=== PATIENT | male | born 1940 | race Caucasian/White ===

== ENCOUNTER 2017-02-25 05:14 | Observation (INO) | payer OTHER ==
[2017-02-25] MEDS ORDERED: NS 1,000 ML IV ONE (05:23)
--- NOTE | 2017-02-25 05:24 | CPEKG ---
Heart Rate: 55 RR Interval: 1091 P-R Interval: 180 QRSD Interval: 94 QT Interval: 456 QTC Interval: 437 P [place]: 64 QRS [place]: 68 T Wave [place]: 44 EKG Severity - NORMAL ECG - EKG Impression: SINUS RHYTHM Electronically Signed By: Alaina Lopez 25-Feb-2017 22:50:05
--- NOTE | 2017-02-25 05:29 | EDPHY ---
H & P HPI/ROS: HPI CHIEF COMPLAINT: Syncope, head injury HISTORY OF PRESENT ILLNESS: This patient very pleasant 76-year-old male, otherwise healthy, does have pre-diabetes but does not take any daily medications except a baby aspirin, he presents to the emergency room as he states that around 5:00 a.m. he got up because he was feeling nauseous he had no pain. He stood up and then had a syncopal episode. He fell from a standing height with head strike. Positive LOC. His reports that he was unresponsive for 3 min. 911 was called. EMS arrived and brought him to the emergency room however Enroute to the emergency room they report that he had another syncopal episode with heart rate going down into the 30s. They state they witnessed this and then he had some myoclonic jerks. This lasted less than 30 sec. No postictal state. No bowel or bladder incontinence. Did not bite his tongue. He presents to the emergency room hemodynamically stable. He does not recall any preceding events when he stood up out of bed except that he felt nauseous. He denies chest pain or shortness of breath. Denies palpitations. He did have head strike and has a posterior vertex scalp laceration. Past Medical History: Denies significant medical history except for pre diabetes Past Surgical History: Knee surgery Social History: Alcohol nightly, 2 drinks. He had multiple drinks this evening including 2 glasses of wine, liquor drinks, and rum drink. Family History: Noncontributory. ROS REVIEW OF SYSTEMS: A comprehensive 10 point review of systems is otherwise negative aside from elements mentioned in the history of present illness. Exam Constitutional appears well however slightly dry on exam triage nursing summary reviewed, vital signs reviewed, awake/alert. Eyes normal conjunctivae and sclera, EOMI, PERRLA. HENT head/neck: No midline cervical spine pain, no step-offs or crepitus, head exam shows at the vertex of his head posterior aspect a vertically oriented 5 cm scalp laceration. No other signs of trauma. dry mucous membranes, , no epistaxis, neck supple/ no meningismus, no raccoon eyes. Respiratory clear to auscultation bilaterally, normal breath sounds, no respiratory distress, no wheezing. Cardiovascular rate normal, regular rhythm, no murmur, no edema, distal pulses normal. Gastrointestinal soft, non-tender, no rebound, no guarding, normal bowel sounds, no distension, no pulsatile mass. Genitourinary no CVA tenderness. Musculoskeletal no midline vertebral tenderness, full range of motion, no calf swelling, no tenderness of extremities, no meningismus, good pulses, neurovascularly intact. Skin pink, warm, & dry, no rash, skin atraumatic. Neurologic awake, alert and oriented x 3, AAOx3, moves all 4 extremities equally, motor intact, sensory intact, CN II-XII intact, normal cerebellar, normal vision, normal speech. Psychiatric normal mood/affect. Heme/Lymph/Immune no lymphadenopathy. Differential Diagnosis: Includes but is not limited to in a particular order syncope, vasovagal syncope, orthostatic syncope, cardiac arrhythmia, bradycardia , electrolyte disturbance, dehydration, other cardiac arrhythmia like V-tach VFib, intracranial injury, skull fracture, brain bleed. Medical Decision Making: Plan for this patient check orthostatics, full cardiac catheterization technologist, IV established with IV fluid bolus, check electrolytes, EKG, chest x-ray, CT scan head and neck due to trauma. And re-evaluate. Re-evaluation: EKG interpretation by me on record in [employer] system. Impression time of EKG 5:18 a.m., sinus rhythm rate of 55 I do not appreciate ST elevation or significant ST depression or significant T-wave abnormalities. Orthostatic vital signs reviewed are negative. CT scan head without contrast and CT cervical spine without contrast for trauma is negative for acute traumatic injury. Called to me by Dr. Butler ED x-ray chest one view: Negative for acute cardiopulmonary disease. Laceration Repair Procedure: Verbal Consent was obtained, Under sterile conditions, The wound was copiously irrigated with sterile fluid, the wound was explored for foreign bodies there were none visualized, the wound was explored with a sterile glove to the base. There are no deep structures involved, including no arterial injury. FOUR ANA M were placed in this patient's laceration. He had good close approximation of the wound edges. He Tolerated this well. Patient understands have ana m removed in 7 days. 0612: Patient be admitted to the hospitalist service for syncope. Most likely cause of syncope is dehydration however EMS reports heart rate in the 30s. Would like to monitor him further telemetry to make sure does not have any evidence of cardiac arrhythmia. He has agreed for this. Source: Patient, Family, EMS Constitutional: Initial Vital Signs Temperature (C) 36.6 C 02/25/17 05:15 Heart Rate 64 02/25/17 05:15 Respiratory Rate 18 02/25/17 05:15 Blood Pressure 140/76 H 02/25/17 05:15 O2 Sat (%) 91 L 02/25/17 05:15 O2 Delivery Mode Room Air O2 (L/minute) 2 Allergies/Adverse Reactions: No Known Allergies Allergy (Unverified 02/25/17 05:28) Home Medications: Medication Instructions Recorded Herbals/Supplements -Info Only 1 ea PO DAILY 02/25/17 Multivitamins [Multivitamin (*)] 1 each PO DAILY 02/25/17 [place]-3 Fatty Acids [Fish Oil 1000 1,000 mg PO DAILY 02/25/17 mg (*)] metFORMIN HCL [Glucophage 500 mg 500 mg PO BIDMEAL 02/25/17 (*)] Medical Decision Making - Data Points Laboratory Results: Laboratory Results 02/25/17 05:20 02/25/17 05:20 Medications Given: Discontinued Medications Sodium Chloride (Ns) 1,000 mls @ 0 mls/hr IV EDNOW ONE; Wide Open PRN Reason: Protocol Stop: 02/25/17 05:24 Last Admin: 02/25/17 05:37 Dose: 1,000 mls Departure - Departure Disposition: [facility] Inpatient Acute Clinical Impression: Syncope Qualifiers: Syncope type: unspecified Qualified Code(s): R55 - Syncope and collapse Scalp laceration Qualifiers: Encounter type: initial encounter Qualified Code(s): S01.01XA - Laceration without foreign body of scalp, initial encounter Condition: Good
[2017-02-25 05:30] LABS: % IMMATURE GRANULYOCYTES 0.3 % (0.0-1.1); ABSOLUTE IMMATURE GRANULOCYTES 0.02 10^3/uL (0.00-0.10); ADD DIFF? NO; ADD MORPH? NO; ADD SCAN? NO; ATYPICAL LYMPHOCYTE FLAG 0 (0-99); FRAGMENT RBC FLAG 0 (0-99); HEMATOCRIT 39.5 % (40.0-51.0); HEMOGLOBIN 13.9 g/dL (13.7-17.5); LEFT SHIFT FLG 0 (0-99); LIPEMIA HEMOLYSIS FLAG 90 (0-99); MEAN CELL HEMOGLOBIN 32.9 pg (27.9-34.1); MEAN CELL HEMOGLOBIN CONCENTR. 35.2 g/dL (32.4-36.7); MEAN CELL VOLUME 93.6 fL (81.5-99.8); MEAN PLATELET VOLUME 9.1 fL (8.7-11.7); PLATELET CLUMPS FLAG 0 (0-99); PLATELET COUNT 212 10^3/uL (150-400); RED BLOOD CELL COUNT 4.22 10^6/uL (4.40-6.38); RED CELL DISTRIBUTION WIDTH 13.7 % (11.5-15.2)
[2017-02-25 05:39] LABS: INR 0.87 (0.83-1.16)
[2017-02-25 05:45] LABS: APTT 25.8 SEC (23.0-38.0)
[2017-02-25 05:50] LABS: ALANINE AMINOTRANSFERASE 37 IU/L (21-72); ALBUMIN 4.2 g/dL (3.5-5.0); ALKALINE PHOSPHATASE 56 IU/L (38-126); ANION GAP 18 mEq/L (8-16); ASPARTATE AMINOTRANSFERASE 39 IU/L (17-59); BILIRUBIN,TOTAL 0.3 mg/dL (0.1-1.4); BILIRUBIN-CONJUGATED 0.2 mg/dL (0.0-0.5); BILIRUBIN-UNCONJUGATED 0.1 mg/dL (0.0-1.1); CALCIUM 9.8 mg/dL (8.5-10.4); CARBON DIOXIDE 22 mEq/l (22-31); CHLORIDE 103 mEq/L (97-110); CREATININE 1.1 mg/dL (0.7-1.3); ETHANOL SERUM < 10 mg/dL (0-10); GLOMERULAR FILTRATION RATE > 60; GLUCOSE 135 mg/dL (70-100); MAGNESIUM 1.8 mg/dL (1.6-2.3); POTASSIUM 3.9 mEq/L (3.5-5.2); SODIUM 143 mEq/L (134-144); TOTAL PROTEIN 6.9 g/dL (6.3-8.2)
[2017-02-25 06:01] LABS: TROPONIN I < 0.012 ng/mL (0.000-0.034)
[2017-02-25 06:02] LABS: CK-MB INTERPRETATION NEGATIVE (NEGATIVE); CREATINE KINASE-MB FRACTION 3.77 ng/mL (0.00-3.19)
[2017-02-25] MEDS ORDERED: ONDANSETRON 4 MG/2 ML VIAL IVP PRN ×2 (07:56→14:07)
[2017-02-25] MEDS ORDERED: ACETAMINOPHEN 325 MG TAB PO PRN ×2 (07:56→14:07)
[2017-02-25 11:49] VITALS: O2SAT 93
--- NOTE | 2017-02-25 13:45 | ECHO ---
[email or web address] [address] [address] Main: [phone] Fax: [email or web address] Echocardiogram Name: THEA SAMANIEGO MR#: [id number] Study Date: 02/25/2017 Study Time: 11:59 AM Date of : 1940 Age: 76 year(s) Height: 170.2 cm (67 in.) Weight: 69.4 kg (153 lb.) BSA: 1.8 m2 Gender: Male Examination: Echo Indication: Cardiac: syncope, bradycardia Image Quality: Adequate Contrast: Requested by: Jacklyn Schwartz BP: 135 mmHg/72 mmHg Heart Rate: Rhythm: Normal sinus rhythm Indication: Cardiac: syncope, bradycardia Procedure Staff Event Marketing Representative: Any Khan Reading Physician: Alex Olivera Requesting Provider: Conclusions: No pericardial effusion. Concentric left ventricular hypertrophy with ejection fraction of 68%. Aortic valve calcification with mean gradient of 12 mm of mercury. Trileaflet aortic valve. Mild tricuspid regurgitation with a right ventricular systolic pressure of 43 mm of mercury. Dilatation of the aorta at 4.2 cm. Measurements: Chambers Valvular Assessment AV/MV Valvular Assessment TV/PV Normal Normal Normal Name Value Range Name Value Range Name Value Range Ao Noelle (2D): 3.6 cm (1.4 cm-2.6 AV Vmax: 2.29 m/s (1 m/s-1.7 TR Vmax: 3.10 mm/s ( - ) cm) m/s) TR PGmax: 38 mmHg ( - ) IVSd (2D): 1.0 cm (0.6 cm-1.1 AV maxP mmHg ( - ) syst. PAP: 43 mmHg ( - ) cm) AV meanP mmHg ( - ) PV Vmax: 0.65 m/s (0.6 m/s-0.9 LVDd (2D): 3.8 cm (4.2 cm-5.9 CONCHITA (VTI): 2.0 cm ( - ) m/s) cm) MV E Vmax: 0.80 m/s ( - ) PV PGmax: 2 mmHg ( - ) LVDs (2D): 2.3 cm (2.1 cm-4 MV A Vmax: 0.74 m/s ( - ) cm) MV E/A: 1.08 ( - ) LVPWd (2D): 1.1 cm (0.6 cm-1 cm) LVOTd 2.2 cm 2.2 cm mm LVEF (BP): 68 % (>=55 %) RVDd(2D): 3.6 cm (1.9 cm-3.8 cmmm) Continued Measurements: Chambers Valvular Assessment AV/MV Valvular Assessment TV/PV Name Value Name Value Name Value LADs Lon.7 cm MV DecTime: 243 m/s CVP (est.): 5 mmHg LA Area: 17.7 cm2 MV E' Septal: 0.07 m/s Patient: THEA SAMANIEGO Study Date: 02/25/2017 Page 1 of 2 11:59 AM LA Volume: 55 ml MV E/E' Septal: 11.30 LA Volume Index: 30.6 ml/m2 MV E/E' Lateral: 10.00 Additional Vessels Name Value Ao Ascendin.2 cm Findings: Left Ventricle: Normal size left ventricle. Mild concentric LV hypertrophy. Normal global systolic LV function. EF is 68 %. No regional wall motion abnormality. Normal diastolic LV function. Right Ventricle: Normal size right ventricle. Normal RV function. Left Atrium: The left atrium is normal in size. Right Atrium: The right atrium is normal in size. Mitral Valve: The mitral valve is normal in appearance and function. Mild mitral valve regurgitation is present. No mitral stenosis is present. Aortic Valve: The aortic valve is tri-leaflet. Mild aortic cusp calcification is noted. Mean aortic valve gradient 12. Trivial calcific aortic valve stenosis. There is no aortic valve regurgitation. Tricuspid Valve: The tricuspid valve is normal in appearance and function. Mild tricuspid regurgitation is present. Right ventricular systolic pressure measures 43mmHg. The pulmonary artery pressure is mild to moderately increased. Pulmonic Valve: The pulmonic valve is normal in appearance and function. Trivial pulmonic valve regurgitation. Aorta: The aorta is normal. Normal size aortic root measuring 3.5 cm, measuring 3.6 cm. Mildly dilated ascending aorta measuring 4.2 cm. IVC: The IVC is normal sized. Pericardium: No pericardial effusion. (No Signature Object) Patient: THEA SAMANIEGO Study Date: 02/25/2017 Page 2 of 2 11:59 AM [id number]
[2017-02-25] MEDS ORDERED: ONDANSETRON DISINTEGRATING 4 MG TAB PO PRN (14:07)
[2017-02-25] MEDS ORDERED: ZOLPIDEM TARTRATE 5 MG TAB PO PRN (14:07)
--- NOTE | 2017-02-25 14:18 | PDGENHP ---
History and Physical History and Physical: CC: Syncope HISTORY: This patient was feeling well when he went to bed last night. Upon awakening this morning he felt queasy and nauseous and perhaps a bit lightheaded. He got up out of the bed and promptly had a syncopal event falling to the floor, striking the back of his head with a laceration. He does not recall exactly how he woke up but his was with him and says that when he woke up he was frightened and yelling for a few seconds but then talking appropriately and not confused. There was nothing that specifically would indicate seizure such as mouth biting or emptying his bowel or bladder or seizure-like activity. Since then he has no appetite but feels a lot less nauseous and queasy and aside from some discomfort where he banged his head does not really have any particular symptoms. There is no neurologic symptoms or neck pain. There has been no palpitation, and he has had no symptoms of angina or heart failure. Due to the syncopal spell the did call 911 and paramedics came. As the patient took a few seconds to tell them the presence name the transported here to the hospital. Apparently on the way to the hospital in the ambulance the patient had yet another syncopal spell that was associated with a brief bradycardia heart rate in the 30s. He has had stable vital signs overall since then although heart rate in the ER was in the upper 50s The patient did have a minor upper respiratory infections syndrome started several days ago and is improving but still present. No fever with that and no headache. The patient did have more alcohol than usual last night to drink and perhaps less overall fluids. He does not use tobacco or street drugs or marijuana. He takes only aspirin as a medication and has not had any other recent medications. He has 1 episode of syncope on an airplane many years ago and a few episodes of near-syncope. More recently over the past 2-3 months he has had a syndrome of exertional lightheadedness that resolves within 10-20 seconds if he continues exertion. Typical exertion to bring this on might be walking, going up stairs. He more chronically can occasionally get a little lightheadedness if he has vigorously going up the side of amount. He did have a stress test with myocardial perfusion imaging 3 months ago to assess this and this was reportedly a normal study. He does have a history of a heart murmur and had an echocardiogram 3 years ago to assess that and he reports that it read normal. These were all done up in [place] and I do not immediately have the records available. The patient has had no other heart disease diagnoses or problems, no pulmonary problems, no vascular disease no thromboembolic disease. He has no pleuritic chest pain or leg pain or swelling at this time. He has not traveled recently. There has been no fluid losses such as bleeding or GI losses. 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 his is here with him at the bedside and very supportive No tobacco or street drugs, alcohol as above MEDICATIONS: Only aspirin PHYSICAL EXAMINATION: Vital Signs: Initial heart rate in the upper 50s now in the upper 60s, all sinus and regular, blood pressure is normal no fever respirations normal Social Insurance Administrator: Sinus rhythm The tracing from the ambulance where he was bradycardic is not available to me but I did not hear about any specific conduction blocks Examination: General: alert, oriented, good mentation, relaxed Skin: warm, dry, good color, no rash HEENT: normal Neck: no mass or jvd Resps: relaxed Lungs: clear breath sounds Heart: regular, no murmur Abdomen: soft, nondistended, nontender, +BS, no mass Upper Extremities: normal Lower Extremities: no edema, warm No Bleeding or bruising Neurologic: normal speech/language, 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 I do not see any evidence of stroke bleeding or intracranial or cranial injury or any masses I reviewed CT images from the cervical spine, not yet read by radiologist. There is severe degenerative change of the vertebral bodies and severe disc space disease but I do not see any kind of fractures or significant subluxation. There is a curious finding of several pockets of air density within the vertebral bodies of 4 consecutive cervical vertebrae, I am not sure how to interpret this and will need to review with the radiologist. I reviewed chest x-ray image, no signs of heart failure infiltrate effusions 12 LEAD EKG: My interpretation of the tracing is a sinus rhythm with no acute abnormalities or concerning conduction abnormalities or signs of ischemia Echocardiogram has been done: There is mild to moderate pulmonary hypertension at 43 with mild mitral regurgitation and some aortic valve sclerosis, normal ejection fraction mild LVH ASSESSMENT: -acute syncopal spell followed by a 2nd spell while riding to the hospital in the ambulance -the story is described by the patient and his sounds most typical of a vagal type episode, with several aspects of his history to indicate likely causative factors including alcohol, dehydration, digestive upset, and others, along with a prior ongoing tendency to lightheaded spells including 1 previous syncope -he did have bradycardia with his 2nd episode today however and a bradycardic cause of syncope from sinus disease cannot be entirely ruled out -there is evidence of pulmonary hypertension but at this time no other evidence or symptom of pulmonary embolism; given the current findings from clinical studies it would be prudent to at least get a D-dimer to be sure that PE is not a cause -a recent myocardial perfusion imaging stress test was normal and I do not believe that this is an ischemic event -pulmonary hypertension as identified by echocardiogram, unknown etiology -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 Vicente I requested copies of his outpatient echocardiogram for 3 years ago for comparison with today's echo
[2017-02-25 15:25] VITALS: BP 132/68; PULSE 73; RESP 13; TEMP 98.8
--- NOTE | 2017-02-25 17:44 | PDDCSUM ---
Discharge Summary Discharge Summary: DISCHARGE DIAGNOSES: -syncope today x2, suspect vasovagal -pulmonary hypertension new diagnosis today; etiology unknown at this time -diabetes mellitus type 2 -suspicion raised for possible sleep apnea PROCEDURES: Echocardiogram Cardiac EKG monitoring HOSPITAL COURSE SUMMARY: This patient who has a history of 1 prior syncopal spell, and recently has had exertional lightheadedness and a normal myocardial perfusion imaging stress test , came in after syncope. He woke this morning with nausea and wooziness, abdominal bloating but without pain. Upon getting out of bed he probably had a syncopal spell. There was nothing about this to suggest seizure. Paramedics were called and had a 2nd syncopal spell and route to the hospital associated with some bradycardia. Since then he has had normal sinus rhythm on cardiac EKG monitoring. In addition to the the GI symptoms which have now resolved, the patient had taken in not enough fluid yesterday, had had more alcohol than usual, had had less sleep than usual, had had a very large meal last night, all potential aggravating factors for his fainting spell which is suspected to be vagal in etiology. There was no evidence of cardiac ischemia or heart failure. A D-dimer was negative and he had no specific symptoms otherwise to suggest PE or DVT. There was no tachycardia hypoxemia or shortness of breath Because the patient has heart murmur is that of previously been evaluated with echocardiogram and echocardiogram was done. The main significant finding on this study was pulmonary hypertension at 43, associated with some mild tricuspid regurgitation. The mitral valve did not have any significant leak or disease and the aortic valve had some sclerosis but was functioning well. There were no other significant abnormalities on the echo study. The patient has never smoked or had any lung disease, and does not have any wheezing or shortness of breath. His lung exam here was normal, awake oxygen levels normal, and chest x-ray unremarkable. As he has diabetes a possible cause of his pulmonary hypertension could be sleep apnea. In discussing with his he is not a snorer but does have some changes in his breathing pattern potentially consistent with sleep apnea. I reviewed this in detail with the patient and his . He certainly will need further assessment for because of his sleep apnea and a sleep study would be possibly a good place to start. He could have some unrecognized pulmonary functional abnormality, and pulmonary function studies may also be helpful. PENDING TEST RESULTS: None MEDICATION CHANGES: None FOLLOW-UP PLAN: With his primary care physician in 7-10 days Further assessment for cause of pulmonary hypertension is indicated, including possibly sleep studies, pulmonary function studies or others as felt necessary. He had no significant bradycardia or arrhythmia here in the hospital but consideration of outpatient cardiac monitoring for bradycardia might also be useful but is felt less likely to be the cause of his fainting spell. Patient is instructed to keep well hydrated, exercise no more than moderately and as tolerated, and to seek attention for any further significant spells.
--- NOTE | 2017-02-26 16:12 | ASDISCHSUM ---
Discharge Information Plan Status:Home with No Needs Medically Cleared to Leave: Discharge Date:02/25/2017 06:33 PM CM D/C Disposition:Home, Routine, Self-Care ADT D/C Disposition:Home, Routine, Self-Care Projected Discharge Date:02/25/2017 06:33 PM Transportation at D/C:Family Discharge Delay Reason: Follow-Up Date:02/25/2017 06:33 PM Discharge Slot: Final Diagnosis: Placement Information Patient Contact Information Contact Name:AYDE Relationship: Address:[address] City:[place] Alternate Phone: [facility]/Zip Code:[place] [address] Email: Financial Information Financial Class:MC Primary Plan Desc:MEDICARE OUTPATIENT Primary Plan Number:[id number] Secondary Plan Desc:CGI Secondary Plan Number:[id number] Assessment Information Intervention Information
== END 2017-02-25 18:33 | disposition home or self-care (01) ==
LOC: EDUNIT# → F2W 07:30
PROVIDERS: ADMIT Family Medicine; ATTEND Internal Medicine
PROC: 0HQ0XZZ Repair Scalp Skin, External Approach (ICD-10-PCS; principal; 2017-02-25)
DX: R55 Syncope and collapse (principal); I27.20 Pulmonary hypertension, unspecified; R73.09 Other abnormal glucose; E86.0 Dehydration; S01.01XA Laceration without foreign body of scalp, initial encounter; W19.XXXA Unspecified fall, initial encounter; Y92.013 Bedroom of single-family (private) house as the place of occurrence of the external cause; R01.1 Cardiac murmur, unspecified; M50.30 Other cervical disc degeneration, unspecified cervical region; Y99.8 Other external cause status; Z82.49 Family history of ischemic heart disease and other diseases of the circulatory system; Z79.82 Long term (current) use of aspirin
CPT/HCPCS: 12002; 70450; 71010; 72125; 92523; 93005; 93306; G0378; G9165; G9166; G9167; G0480

== ENCOUNTER → 2017-05-23 | Outpatient (CLI) | payer OTHER, MEDICARE | LOC: FCPNEURO 21:30 | PROVIDERS: ATTEND Psychiatry & Neurology Sleep Medicine | DX: G47.33 Obstructive sleep apnea (adult) (pediatric) (principal); G47.31 Primary central sleep apnea ==